=== PATIENT | female | born 1995 | race African-American/Black ===

== ENCOUNTER 2022-12-01 09:14 | Emergency (ER) | payer MEDICAID, OTHER ==
[~2022-12-01] VITALS: Ht 157.5 cm; Wt 68.3 kg
[2022-12-01 09:54] VITALS: BP 113/60
[2022-12-01] MEDS ORDERED: HYDROcodone-ACET 10/325MG TAB PO ONE (10:00)
== END 2022-12-01 11:13 | disposition home or self-care (01) ==
LOC: ER 09:14
DX: O26.892 Other specified pregnancy related conditions, second trimester (principal); R51.9 Headache, unspecified; Z3A.26 26 weeks gestation of pregnancy

== ENCOUNTER 2023-03-16 08:38 | Observation (INO) | payer MEDICAID ==
[~2023-03-16] VITALS: Ht 157.5 cm; Wt 78.5 kg
[2023-03-16] MEDS ORDERED: PREN-96 PO (09:44)
[2023-03-16] MEDS ORDERED: ACYC-166 PO (09:45)
== END 2023-03-16 09:56 | disposition home or self-care (01) ==
LOC: UNDOADMOB 08:38 → LDRP 08:38
PROVIDERS: ADMIT Obstetrics & Gynecology; ATTEND Obstetrics & Gynecology
DX: O62.9 Abnormality of forces of labor, unspecified (principal); O26.893 Other specified pregnancy related conditions, third trimester; R10.2 Pelvic and perineal pain; R20.8 Other disturbances of skin sensation; Z3A.37 37 weeks gestation of pregnancy
CPT/HCPCS: 59025; 81002; G0378